=== PATIENT | male | born 1985 ===

== ENCOUNTER → 2018-11-16 | Outpatient (REF) | payer BC ==
[2018-11-16 19:34] LABS: FREE T4 0.99 NG/DL (0.76-1.46); RHEUMATOID FACTOR QUANT < 10.0 IU/ML (<15.0)
[2018-11-16 19:35] LABS: FOLATE > 24.0 NG/ML
[2018-11-18 11:39] LABS: ALBUMIN % 62.5 % (55.8-66.1); ALPHA-1-GLOBULIN % 3.7 % (2.9-4.9); ALPHA-2-GLOBULINS % 7.9 % (7.1-11.8); BETA-1-GLOBULINS % 4.6 % (4.7-7.2)
[2018-11-18 11:40] LABS: ALBUMIN 4.38 GM/DL (3.29-5.55); ALPHA-1-GLOBULINS 0.26 GM/DL (0.17-0.41); ALPHA-2-GLOBULINS 0.55 GM/DL (0.42-0.99); BETA-1-GLOBULINS 0.32 GM/DL (0.28-0.60); BETA-2-GLOBULINS 0.31 GM/DL (0.19-0.55); BETA-2-GLOBULINS % 4.4 % (3.2-6.5); GAMMA GLOBULIN % 16.9 % (11.1-18.8); GAMMA GLOBULINS 1.18 GM/DL (0.65-1.58)
[2018-11-21 00:07] LABS: VITAMIN E(ALPHA TOCOPHEROL) 13.3 mg/L (5.9-19.4); VITAMIN E(GAMMA TOCOPHEROL) 1.5 mg/L (0.7-4.9)
[2018-11-23 00:06] LABS: ANTINUCLEAR ANTIBODIES DIRECT Negative (Negative); Lyme Disease IgG/IgM Antibodie <0.91 ISR (0.00-0.90); Lyme Disease IgM Ab Quantitati <0.80 index (0.00-0.79); VITAMIN B1 LEVEL WHOLE BLOOD 141.2 nmol/L (66.5-200.0); VITAMIN B6,PYRIDOXAL PHOSPHATE 25.8 ug/L (5.3-46.7)
== END ==
LOC: M LABNEURO 18:36
PROVIDERS: ATTEND Psychiatry & Neurology Neurology
DX: R20.2 Paresthesia of skin (principal)